=== PATIENT | male | born 1980 | race Caucasian/White ===

== ENCOUNTER 2016-11-09 22:00 | Inpatient (IN) | payer MEDICAID ==
[~2016-11-09] VITALS: Ht 162.6 cm; Wt 99.3 kg
--- NOTE | ~2016-11-09 | PA ---
Unit #: [id number] #: [id number] Patient: BRAULIO LUGO [id number] [facility] [address] [place] [address] [id number] I MR#: [id number] NAME: BRAULIO LUGO. ROOM: P122 Age: 36 Sex: M Admission Date: 11/10/2016 : 1980 Date of Assessment: 11/10/2016 Attending Physician: Abrahan Tate M.D. Admitting Physician: Abrahan Tate M.D. Primary Care Physician: Generic Doctor Not In System PSYCHIATRIC ASSESSMENT INFORMANTS The patient reliability, fair informant; chart reliability, good. CHIEF COMPLAINT Suicidal ideation. HISTORY OF PRESENT ILLNESS Mr. Rin Valdez is a 36-year-old male, who presented with the above-mentioned complaint. The patient reported it is the second time he has come to the emergency room. The patient reported suicidal ideation with the intention and attempt in the past. The patient is currently homeless, reported homeless over the last 3 weeks, living with a friend and the various family member, currently single. Reports that he has an 11-year-old daughter. The patient has girlfriend from the last 3 years. The patient reports that he is going to [facility] 2 weeks ago and getting a prescription of unknown medication. The patient reported he is currently unemployed, homeless, mom a while back. The patient is currently reporting for foot pain, not getting along with his girlfriend, feeling of hopelessness, sleeping 2 hours. Appetite fair. Loss of weight. The patient reported having suicidal thoughts with a plan to jump out in traffic to kill himself. The patient reported history of aggressive behavior, aggression, verbal threatening behavior when he is angry. No known history of any abuse. History of legal charges including fourth degree assault charges, DUI, drug possession, writing bad checks, no court date. Currently, on Vistaril p.r.n. Reported tobacco use, amphetamine abuse, needing inpatient admission at this time for psychiatric stabilization. PAST PSYCHIATRIC HISTORY Remarkable for history of previous treatment. No recent treatment. Currently on no psychotropic medication. FAMILY HISTORY AND SOCIAL HISTORY The patient has a poor support system. Multiple stressor. No history of abuse. History of legal charges. Please see above for detail. MEDICAL HISTORY Remarkable for history of foot pain and swelling. No chronic medical condition. Musculoskeletal, muscle strength and tone, no atrophy or abnormal movement. Gait normal. MEDICATION HISTORY None. Unit #: [id number] #: [id number] Patient: BRAULIO LUGO ALLERGIES No known drug allergies. SUBSTANCE ABUSE HISTORY Please see above. REVIEW OF SYSTEMS HEENT: Eyes, clear. Ears, nose, mouth, and throat clear. CARDIOVASCULAR: Unremarkable. RESPIRATORY: Unremarkable. GI: Unremarkable. : Unremarkable. SKIN: Unremarkable. LYMPH NODE: Unremarkable. NEUROLOGIC: Unremarkable. ENDOCRINE: Unremarkable. HEMATOLOGIC: Unremarkable. ALLERGIC/IMMUNOLOGIC: Unremarkable. MUSCULOSKELETAL: Muscle strength and tone, no atrophy or abnormal movement. Gait normal. MENTAL STATUS EXAMINATION CONSTITUTIONAL: Measurement of vital signs; temperature 98.7, pulse 72, respiratory rate 16, blood pressure 115/60. Height 5 feet 4 inches, weight 219 pounds. GENERAL APPEARANCE: The patient dressed casually. The patient did not show any facial deformity. MUSCULOSKELETAL: Please see above. PSYCHIATRIC EXAMINATION Description of speech; regular rate, normal volume, normal articulation, coherent. Description of thought process, goal directed. Description of association, intact. Description of abnormal psychotic thinking; the patient denied any hallucination, but depression and suicidal ideation, mood lability. Description of the patient's judgment, concerning everyday activity, poor. Social situation, poor. Concerning psychiatric condition, poor. Complete mental status examination; oriented in time, place, and person. Recent and remote memory, fair. Attention span and concentration, fair. Language, able to name object and repeat phrases. Fund of knowledge, aware of current event and passive vocabulary intact. Mood and affect, sad and dysphoric. Insight and judgment, fair to poor. ASSETS AND LIABILITIES Assets, the patient is articulate and able to take care of his ADL. Liability, history of depression. ADMITTING DIAGNOSES Psychiatric: Major depressive disorder, recurrent, severe, F33.2. Secondary diagnosis: Deferred. Medical diagnosis: None. Stressors: Psychosocial stressors. PSYCHIATRIC PLAN AND TREATMENT GOAL AND DISCHARGE PLAN Unit #: [id number] #: [id number] Patient: BRAULIO LUGO 1. Advised to admit the patient on the inpatient unit. Provide safe, supportive, and structured environment. 2. Ordered labs; CBC, CMP, UA, and UDS. The patient is reporting paranoia, mood lability, and depression, advised to resume Remeron 30 mg at bedtime, Vistaril 25 mg three times a day, Desyrel 50 mg at bedtime p.r.n. for sleep, and Zyprexa 10 mg at bedtime for hallucination. The patient to attend all the programming group therapy, individual therapy, chemical dependency group. Treatment goal to attain euthymic mood, gain insight into his problem, and learn coping skills. DISCHARGE PLAN Plan to stabilize the patient and consider followup in outpatient program. ESTIMATED LENGTH OF STAY 3 to 5 days. Dictated by... Kyara Diaz/farzana TD: 11/10/2016 12:59 JOB #: [id number] PSYCHIATRIC ASSESSMENT Page 1 of 1 X Abrahan Tate MD X PSYCHIATRIC ASSESSMENT
--- NOTE | ~2016-11-09 | DS ---
Unit #: [id number] #: [id number] Patient: BRAULIO LUGO [id number] [facility] [address] [place] [address] [id number] I MR#: [id number] NAME: BRAULIO LUGO. ROOM: [facility] Age: 36 Sex: M Admission Date: 11/10/2016 : 1980 Discharge Date: 11/12/2016 Attending Physician: Abrahan Tate M.D. Primary Care Physician: Generic Doctor Not In System DISCHARGE SUMMARY REASON FOR ADMISSION Depression, suicidal ideation. DIAGNOSTIC STUDIES Laboratory data, urine drug screen positive for benzodiazepines. HOSPITAL COURSE The patient was admitted to inpatient unit on November 10, and discharged on 11/12/16. The patient was treated with expressive therapy, medication management, psychoeducation, and psychotherapy. The patient was responsive to treatment, showed improvement, and subsequently was discharged with the plan to follow up in outpatient program. DISCHARGE DIAGNOSES PSYCHIATRIC: [place] I Major depressive disorder, recurrent, severe, F33.2. Bipolar mood disorder. [place] II Deferred. [place] III None. [place] IV Psychosocial stressors. [place] V INSTRUCTIONS TO PATIENT The patient is to follow up in outpatient clinic as well as hospice social worker. DISCHARGE MEDICATIONS 1. Remeron 30 mg at bedtime for depression 2. Zyprexa 10 mg at bedtime for mood stabilization 3. Trazodone 50 mg at bedtime for sleep 4. Vistaril 25 mg three times a day for anxiety 5. Norvasc 5 mg daily for hypertension CONDITION AT DISCHARGE The patient is pleasant and cooperative, denied any psychotic symptoms or any suicidal ideation. PROGNOSIS Guarded. DIET AND ACTIVITY As tolerated. Unit #: [id number] #: [id number] Patient: BRAULIO LUGO Dictated by... Kyara Diaz/stephanie TD: 11/14/2016 06:27 JOB #: [id number] DISCHARGE SUMMARY Page 1 of 1 X Abrahan Tate MD X DISCHARGE SUMMARY
--- NOTE | ~2016-11-09 | HP ---
Unit #: [id number] #: [id number] Patient: BRAULIO LUGO [id number] [place] [address] [id number] I MR#: [id number] NAME: BRAULIO LUGO. ROOM: P122 Age: 36 Sex: M Admission Date: 11/10/2016 : 1980 Attending Physician: Abrahan Tate M.D. Admitting Physician: Abrahan Tate M.D. Primary Care Physician: Generic Doctor Not In System HISTORY AND PHYSICAL HISTORY OF PRESENT ILLNESS The patient is a 36-year-old male admitted to [address] [place] [address] on 11/10/2016 for suicidal ideations. PAST MEDICAL HISTORY Foot pain. PAST SURGICAL HISTORY 1. Right ankle. 2. Tonsils and adenoids. 3. Right hip. SOCIAL HISTORY He is unemployed and homeless. He smokes one pack of cigarettes daily. 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 FAMILY MEDICAL HISTORY Noncontributory. ALLERGIES No known drug allergies. CURRENT MEDICATIONS Vistaril. REVIEW OF SYSTEMS CONSTITUTIONAL: No fever or chills. HEENT: Denies any sore throat, ear pain or runny nose. CARDIOVASCULAR: Denies chest pain, irregular heart rhythm or palpitations. CHEST: Denies shortness of breath or cough. No hemoptysis. GASTROINTESTINAL: Denies nausea, vomiting, diarrhea or chronic constipation. ENDOCRINE: Denies history of increased thirst or urination. No recent significant weight loss or gain. GENITOURINARY: Denies dysuria, frequency, or hematuria. SKIN: Denies any rashes. HEMATOLOGIC: Denies history of increased bleeding or bruising. MUSCULOSKELETAL: He complains of foot pain. NEUROLOGIC: Denies problems with vision or speech. No frequent, severe headaches. No numbness, tingling or weakness in any extremities. Denies loss of bladder or bowel control. PHYSICAL EXAM Unit #: [id number] #: [id number] Patient: BRAULIO LUOG GENERAL: He is awake, alert and oriented in no acute distress. VITAL SIGNS: Temperature 98.4, heart rate 119, respiration 20, blood pressure 136/86. HEIGHT: 5 foot 4. WEIGHT: 219 pounds. SKIN: Warm and dry without rash or lesion. HEENT: Normocephalic. TMs not viewed. Oral and nasal passages clear. Conjunctivae clear. PERRLA. EOMs intact. NECK: Supple without lymphadenopathy or thyromegaly. HEART: Regular rate and rhythm without murmur. LUNGS: Clear. ABDOMEN: Soft, nontender. : Not done. EXTREMITIES: No evidence of cyanosis, clubbing or edema. Moves all without focal deficit. NEUROLOGICAL: Grossly within normal limits. Cranial Nerves: II: Visual gold are intact. III, IV AND : Extraocular movements are intact. Pupils are equal, round and reactive to light. V: Facial sensation is grossly normal. VII: Facial movements and expression are normal. VIII: Auditory acuity grossly intact. IX, X: Uvula is midline. Phonation is normal. XI: Patient shrugs shoulders and turns head normally. XII: Tongue protrudes in the midline. Sensory and Motor Function: Sensory and motor sensation is grossly normal. Motor: moves all extremities well. IMPRESSION 1. Psychiatric admission. 2. Foot pain. RECOMMENDATIONS Psychiatric per psychiatrist. MEDICAL: No contraindication to participate in facility activities. MEDICAL PROGNOSIS Good. MEDICAL CONDITION Stable. Dictated by... Philipp Lopez/amilcar TD: 11/10/2016 23:36 JOB #: [id number] Unit #: [id number] #: [id number] Patient: BRAULIO LUGO HISTORY AND PHYSICAL Page 1 of 1 X EDNA QUIÑONEZ APRN HISTORY AND PHYSICAL
--- NOTE | ~2016-11-09 | PN ---
Unit #: [id number] #: [id number] Patient: BRAULIO LUGO [id number] [facility] [address] [place] [address] [id number] I MR#: [id number] NAME: BRAULIO LUGO. ROOM: P122 Age: 36 Sex: M Admission Date: 11/10/2016 : 1980 Attending Physician: Abrahan Tate M.D. Admitting Physician: Abrahan Tate M.D. Primary Care Physician: Generic Doctor Not In System [facility] PROGRESS NOTES DATE 11/11/2016 DISCUSSION Braulio is a 36-year-old male, seen on 11/11/2016. The patient interviewed, chart reviewed, and obtained information from the nursing staff. The patient compliant and cooperative, sad and dysphoric, anxious. The patient is still withdrawn, isolative. REVIEW OF SYSTEMS Complete review of systems unremarkable. MENTAL STATUS EXAMINATION General appearance: Patient dressed casually. Attention span and concentration, fair. Oriented in place and person. Mood and affect, labile. Speech, monotone. Thought process, concrete. The patient denied any thoughts of harming self or others but seclusive, isolative. Recent and remote memory, poor. Insight and judgment, poor. DIAGNOSES 1. Mood disorder, NOS. 2. Alcohol use disorder, severe. ASSESSMENT/PLAN Advised to continue with the current medication and therapeutic protocol, if needed consider further adjustment of medication. Dictated by... Kyara Diaz/stephanie TD: 11/13/2016 05:44 JOB #: [id number] Unit #: [id number] #: [id number] Patient: BRAULIO LUGO PROGRESS NOTES Page 1 of 1 X Abrahan Tate MD X PROGRESS NOTE
--- NOTE | ~2016-11-09 | CO ---
Unit #: [id number] #: [id number] Patient: BRAULIO LUGO [id number] [place] [address] [id number] I MR#: [id number] NAME: BRAULIO LUGO. ROOM: P122 Age: 36 Sex: M Admission Date: 11/10/2016 : 1980 Attending Physician: Abrahan Tate M.D. Primary Care Physician: Generic Doctor Not In System Consultation Date: 11/11/2016 CONSULTATION REPORT SUBJECTIVE Braulio is a 36-year-old with history of high blood pressure. He is admitted on no blood pressure medications. OBJECTIVE VITAL SIGNS: Blood pressures have been running 156/104, 140/118 with heart rate of 80, 82. CARDIAC: Rate and rhythm is regular. CHEST: Lungs clear. EXTREMITIES: No edema. ASSESSMENT High blood pressure, not controlled. PLAN Start Norvasc 5 mg one p.o. daily. The patient will need to follow up with PCP. Dictated by... Ritu CastañedaAAntoni. for Kyara Medel/farzana TD: 11/13/2016 17:41 JOB #: [id number] CONSULTATION REPORT Page 1 of 1 X Saundra Lara CONSULTATION REPORT
[2016-11-10 11:12] LABS: BASOPHIL# 0.1 X10e3 (0-0.3); BASOPHIL% 0.8 % (0-2.5); EOSINOPHIL# 0.4 X10e3 (0-0.7); EOSINOPHIL% 3.7 % (0.0-7.0); HEMATOCRIT 43.4 % (38.0-50.0); HEMOGLOBIN 14.8 gm/dL (13.0-16.0); LYMPHOCYTE% 34.6 % (17.0-45.0); MEAN CELL VOLUME 89.8 FL (83-96); MEAN CORPUSCULAR HEMOGLOBIN 30.7 PG (28-34); MEAN CORPUSCULAR HGB CONC 34.2 g/dL (30-36); MEAN PLATELET VOLUME 9.4 FL (6.5-11.5); MONOCYTE# 1.3 X10e3 (0-1.0); MONOCYTE% 10.9 % (3.0-12.0); NEUTROPHIL# 5.8 X10e3 (1.5-7.1); PLATELET COUNT 222 X10e3 (140-420); RED BLOOD COUNT 4.84 X10e (3.90-5.60); RED CELL DISTRIBUTION WIDTH 13.3 % (11.0-15.5); WHITE BLOOD COUNT 11.7 X10e3 (4.0-10.5)
[2016-11-10 11:20] LABS: ALBUMIN SERUM 3.8 g/dL (3.5-5.0); BILIRUBIN,TOTAL 0.6 mg/dL (0.2-2.0); BUN/CREATININE RATIO 17.77; CALCIUM SERUM 8.7 mg/dL (8.4-10.2); CREATININE SERUM 0.9 mg/dL (0.6-1.4); GLOM FILT RATE Estimated 109.5 mL/min (>60); POTASSIUM 4.1 mmol/L (3.5-5.1); PROTEIN TOTAL SERUM 6.4 g/dL (6.0-8.3)
[2016-11-10 11:49] LABS: DIFF IND NO
== END 2016-11-12 16:06 | disposition home or self-care (01) | DRG 885 ==
LOC: P1S 11-10 01:02
PROVIDERS: Psychiatry & Neurology Psychiatry
DX: F39 Unspecified mood [affective] disorder (principal); R45.851 Suicidal ideations; F17.210 Nicotine dependence, cigarettes, uncomplicated; F10.20 Alcohol dependence, uncomplicated
CPT/HCPCS: 80053; 85025